=== PATIENT | female | born 1960 | race Caucasian/White ===

== ENCOUNTER 2024-04-16 15:46 | Emergency (ER) | payer BC, MEDICARE ==
[~2024-04-16] VITALS: Ht 157.5 cm; Wt 69.4 kg
[2024-04-16 15:55] VITALS: PULSE 75; RESP 16; TEMP 99.3; O2SAT 96
== END 2024-04-16 17:15 | disposition left against medical advice (07) ==
LOC: ER 15:55
DX: R42 Dizziness and giddiness (principal); Z98.2 Presence of cerebrospinal fluid drainage device; I10 Essential (primary) hypertension; E11.9 Type 2 diabetes mellitus without complications; G40.909 Epilepsy, unspecified, not intractable, without status epilepticus; E78.5 Hyperlipidemia, unspecified; F41.9 Anxiety disorder, unspecified; F32.A Depression, unspecified; G30.9 Alzheimer's disease, unspecified; F02.80 Dementia in other diseases classified elsewhere, unspecified severity, without behavioral disturbance, psychotic disturbance, mood disturbance, and anxiety
CPT/HCPCS: 70450; 75809; 99283